=== PATIENT | male | born 2000 | race Caucasian/White ===

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

== ENCOUNTER 2019-04-07 23:04 | Emergency (ER) | payer SELFPAY ==
[~2019-04-07] VITALS: Ht 190.5 cm; Wt 72.6 kg
[2019-04-07 23:30] VITALS: BP 119/88
--- NOTE | 2019-04-08 01:43 | NUR ---
PT AMBULATED TO BED 02
[2019-04-08] MEDS ORDERED: ACETAMINOPHEN 325 MG TAB PO ONE (02:00)
[2019-04-08] MEDS ORDERED: IBUPROFEN 600 MG TAB PO ONE (02:00)
--- NOTE | 2019-04-08 02:14 | NUR ---
18 Y/O MALE PRESENTS TO ED, C/O PAIN BEHIND THE KNEE DUE TO A POSSIBLE CYST. PT STATES HE HAS BEEN HAVING PAIN SINCE BEING DISCHARGED FROM [facility] ED. PT DENIES TAKING ANY MEDICATIONS FOR PAIN. PT ABLE TO AMBULATE WITH SLOW STEADY GAIT BUT WITH PAIN. PT VSS. ERMD AWARE. WILL CONTINUE TO MONITOR.
[2019-04-08 03:58] LABS: BASOPHILS % (AUTO) 0.4 % (0.0-2.0); EOSINOPHILS # (AUTO) 0.3 K/uL (0-0.4); EOSINOPHILS % (AUTO) 2.2 % (0.0-4.0); HEMATOCRIT 40.5 % (36-52); HEMOGLOBIN 13.5 g/dL (12.0-18.0); LYMPHOCYTES # (AUTO) 3.5 K/uL (2.0-11.5); LYMPHOCYTES % (AUTO) 29.7 % (20.5-51.1); MEAN CORPUSCULAR HEMOGLOBIN 30 pg (27-31); MEAN CORPUSCULAR HGB CONC 33 g/dL (33-37); MEAN CORPUSCULAR VOLUME 90.4 fL (80-94); MONOCYTES # (AUTO) 0.8 K/uL (0.8-1.0); NEUTROPHILS # (AUTO) 7.2 K/uL (1.8-7.7); NEUTROPHILS % (AUTO) 60.7 % (42.2-75.2); PLATELET COUNT (AUTO) 308 K/uL (140-450); RED BLOOD CELL COUNT(AUTO) 4.48 MIL/uL (4.20-6.10); RED CELL DISTRIBUTION WIDTH 13.1 % (11.6-13.7); WHITE BLOOD COUNT (AUTO) 11.8 K/uL (4.5-11.0)
[2019-04-08 04:12] LABS: CARBON DIOXIDE 29.4 mmol/L (21-32); POTASSIUM 3.4 mmol/L (3.5-5.1)
--- NOTE | 2019-04-08 05:49 | NUR ---
PT WAS GIVEN CRUTCHES AND SHOWN HOW TO USE THEM. PT SHOWED GOOD USE OF CRUTCHES W NO ISSUES.
[2019-04-08 05:51] VITALS: BP 111/78
--- NOTE | 2019-04-08 05:51 | NUR ---
PT DISCHARGED WITH PAPERWORK. RX NAPROXEN. EDUCATED PT REGARDING MEDICATIONS AND S/E. EDCUATED PT REGARDING D/C DIAGNOSIS AND INSTRUCTIONS. PT VERBALIZED UNDERSTANDING OF TEACHING. TOLD PT TO FOLLOW UP WITH PCP AND WHEN TO RETURN TO ED. PT VSS. ALL QUESTIONS ANSWERED.
== END 2019-04-08 05:51 | disposition home or self-care (01) ==
LOC: MED 23:04
DX: M71.21 Synovial cyst of popliteal space [Baker], right knee (principal)
CPT/HCPCS: 36415; 76881; 80048; 85025; 85651; 86140; 99284; Q0092

== ENCOUNTER 2019-05-30 21:27 | Emergency (ER) | payer SELFPAY ==
[~2019-05-30] VITALS: Ht 190.5 cm; Wt 70.3 kg
[2019-05-30 21:32] VITALS: BP 111/63
--- NOTE | 2019-05-30 21:43 | NUR ---
PT AMBULATED TO RESTROOM TO PROVIDE URINE SAMPLE
[2019-05-30] MEDS ORDERED: AZITHROMYCIN 250 MG TAB PO ONE (21:50)
[2019-05-30] MEDS ORDERED: cefTRIAXone 250 MG in LIDOCAINE MPF 1% 0.9 ML IM ONE (21:50)
[2019-05-30] MEDS ORDERED: cefTRIAXone 1,000 MG in LIDOCAINE MPF 1% 2.1 ML IM ONE (21:55)
--- NOTE | 2019-05-30 21:56 | NUR ---
19 Y/O MALE PRESENTS TO ED, C/O BURNING SENSATION VOIDING ALONG WITH YELLOW DISCHARGE. PT STATES SYMPTOMS STARTED "A COUPLE DAYS AGO". PT HAS TENDERNESS AND PAIN ON LEFT SUPRAPUBIC REGION WITH SWELLING. PT DENIES ANY BLOODY DISCHARGE OR HEMATURIA. PT STATES BEING SEXUALLY ACTIVE. PT AT STABLE CONDITION. ERMD AWARE. WILL CONTINUE TO MONITOR.
[2019-05-30 22:12] VITALS: BP 119/55
--- NOTE | 2019-05-30 22:12 | NUR ---
PT DISCHARGED WITH PAPERWORK. RX CIPRO. EDUCATED PT REGARDING MEDICATION AND S/E. EDUCATED PT REGARDING D/C DIAGNOSIS AND INSTRUCTIONS. PT VERBALIZED UNDERSTANDING OF TEACHING. TOLD PT TO FOLLOW UP WITH PCP AND WHEN TO RETURN TO ED. PT AT STABLE CONDITION. ALL QUESTIONS ANSWERED.
[2019-05-30 23:18] LABS: APPEARANCE,URINE CLOUDY (CLEAR); BILIRUBIN,URINE NEGATIVE (NEGATIVE); BLOOD, URINE NEGATIVE (NEGATIVE); COLOR,URINE YELLOW (YELLOW); LEUKOCYTE ESTERASE ,URINE TRACE (NEGATIVE); NITRITE, URINE NEGATIVE (NEGATIVE); UGLUCOSE NEGATIVE (NEGATIVE)
[2019-05-31 01:25] LABS: RBC,URINE 0-5 /HPF (0-5); WBC,URINE TOO MANY TO COUNT /HPF (0-5)
[2019-06-02 06:27] LABS: CHLAMYDIA TRACHOMATIS AMP DNA Negative (Negative)
--- NOTE | 2019-06-03 19:00 | NUR ---
gonorrhoea culture positive; pt received azithromycin and rocephin in our ER and sent home with emily Rodriguez confirmed treatment appropriate i attempted to call phone on file but disconnected wireless
--- NOTE | 2019-06-08 18:46 | NUR ---
as per appropriate treatment given in ER during visit. attempted to reach pt to notify of positive results and f/u with pmd---[phone] wireless not in service
== END 2019-05-30 22:12 | disposition home or self-care (01) ==
LOC: MED 21:27
DX: N39.0 Urinary tract infection, site not specified (principal); F17.210 Nicotine dependence, cigarettes, uncomplicated; F12.90 Cannabis use, unspecified, uncomplicated; Z20.2 Contact with and (suspected) exposure to infections with a predominantly sexual mode of transmission
CPT/HCPCS: 36415; 81001; 87086; 87491; 96372; 99283; J0696; J2001

== ENCOUNTER 2019-09-16 21:10 | Emergency (ER) | payer MEDICAID ==
[~2019-09-16] VITALS: Ht 190.5 cm; Wt 66.7 kg
[2019-09-16 21:19] VITALS: BP 113/92
[2019-09-16 23:12] VITALS: BP 110/89
== END 2019-09-16 22:56 | disposition home or self-care (01) ==
LOC: MED 21:10
DX: S92.251D Displaced fracture of navicular [scaphoid] of right foot, subsequent encounter for fracture with routine healing (principal); W33.01XA Accidental discharge of shotgun, initial encounter
CPT/HCPCS: 73630; 90471; 90715; 99283

== ENCOUNTER 2019-10-12 21:35 | Emergency (ER) | payer MEDICAID ==
[~2019-10-12] VITALS: Ht 190.5 cm; Wt 72.6 kg
--- NOTE | 2019-10-12 21:45 | NUR ---
PT AMBULATED TO BED 2 WITH CRUTCHES, STEADY GAIT.
[2019-10-12 21:48] VITALS: BP 129/65
--- NOTE | 2019-10-12 21:50 | NUR ---
AT BEDSIDE EXAMINING PT
--- NOTE | 2019-10-12 21:50 | NUR ---
David hinojosa in [facility] - 10/12/19 at 2210 by [facility] AT BEDSIDE EXAMING PT
--- NOTE | 2019-10-12 21:51 | NUR ---
19 Y/O MALE C/O RIGHT ANKLE PAIN THAT RADIATES TO THE ENTIRE RIGHT FOOT AND HAS DECREASED RANGE OF MOTION. PT STATES HE INJURED HIS RIGHT FOOT RECENTLY AND WAS AWATING SURGERY FOR A BROKEN BONE IN RIGHT FOOT AND AT 7PM PT STEPPED WRONG AND RE-INJURED RIGHT ANKLE/FOOT AND PAIN 02/09. +CMS/WARMTH TO TOUCH/TENDER TO PALP/MILD EDEMA TO INNER RIGHT ANKLE. PT USING CRUTCHES FROM PREVIOUS FOOT INJURY. DENIES N/V/D; AAOX4 WITH AND USING CRUTCHES TO AMBULATE; PT DENIES ANY FEVER, CP, SOB, OR COUGH AT THIS TIME; VSS; PATIENT POSITIONED FOR COMFORT; HOB ELEVATED; BEDRAILS UP X1; BED DOWN AND LOCKED. MEDICAL HX: PT DENIES NKA
--- NOTE | 2019-10-12 21:52 | NUR ---
XR AT BEDSIDE.
--- NOTE | 2019-10-12 22:32 | NUR ---
ANKLE STIRRUP SPLINT PLACED ON PT R ANKLE, FASTENED IN PLACE. +CSM
[2019-10-12 22:40] VITALS: BP 129/65
--- NOTE | 2019-10-12 22:40 | NUR ---
Patient discharged with v/s stable. Written and verbal after care instructions given and explained. Patient verbalized understanding. Ambulatory with steady gait USING OLD CRUTCHES PT BROUGHT FROM HOME DESPITE ERMD STATING PT CAN WALK. All questions addressed prior to discharge. Advised to follow up with PMD.
== END 2019-10-12 22:40 | disposition home or self-care (01) ==
LOC: MED 21:35
DX: M25.571 Pain in right ankle and joints of right foot (principal); X58.XXXA Exposure to other specified factors, initial encounter; Y93.39 Activity, other involving climbing, rappelling and jumping off; Y92.89 Other specified places as the place of occurrence of the external cause; Y99.8 Other external cause status
CPT/HCPCS: 29515; 73610; 73630; 99284; Q0092

== ENCOUNTER 2020-12-03 23:20 | Emergency (ER) | payer MEDICAID, OTHER ==
[~2020-12-03] VITALS: Ht 188 cm; Wt 66.4 kg
[2020-12-03 23:27] VITALS: BP 114/76
--- NOTE | 2020-12-03 23:56 | NUR ---
Dr. Salas examining patient.
[2020-12-04] MEDS ORDERED: ONDANSETRON 4 MG/2 ML VIAL IVP ONE
--- NOTE | 2020-12-04 00:25 | NUR ---
pt ambulated to the bathroom for urine collection
[2020-12-04 00:43] LABS: BASOPHILS % (AUTO) 0.3 % (0.0-2.0); EOSINOPHILS # (AUTO) 0.2 K/uL (0-0.4); EOSINOPHILS % (AUTO) 1.2 % (0.0-4.0); HEMATOCRIT 43.8 % (36-52); HEMOGLOBIN 14.8 g/dL (12.0-18.0); LYMPHOCYTES # (AUTO) 3.1 K/uL (2.0-11.5); LYMPHOCYTES % (AUTO) 21.8 % (20.5-51.1); MEAN CORPUSCULAR HEMOGLOBIN 31 pg (27-31); MEAN CORPUSCULAR HGB CONC 34 g/dL (33-37); MEAN CORPUSCULAR VOLUME 90.2 fL (80-94); MONOCYTES # (AUTO) 0.7 K/uL (0.8-1.0); MONOCYTES % (AUTO) 4.6 % (1.7-9.3); NEUTROPHILS # (AUTO) 10.4 K/uL (1.8-7.7); NEUTROPHILS % (AUTO) 72.1 % (42.2-75.2); PLATELET COUNT (AUTO) 299 K/uL (140-450); RED BLOOD CELL COUNT(AUTO) 4.86 MIL/uL (4.20-6.10); RED CELL DISTRIBUTION WIDTH 12.9 % (11.6-13.7); WHITE BLOOD COUNT (AUTO) 14.4 K/uL (4.8-10.8)
[2020-12-04 00:48] LABS: ANION GAP 11.7 (8-16); CARBON DIOXIDE 29.3 mmol/L (21-32); CREATININE 0.9 mg/dL (0.6-1.3); TOTAL BILIRUBIN 0.4 mg/dL (0.0-1.0)
--- NOTE | 2020-12-04 00:50 | NUR ---
PATIENT BIB SELF FOR C/O EPIGASTRIC PAIN RADIATING TO "WHOLE STOMACH." PATIENT STATES PAIN STARTED X 3 DAYS AGO. HAS C/O NAUSEA AND DIARRHEA. PT REPORTS HEAVILY DRINKING ALCOHOL FOR THE LAST COUPLE OF DAYS. "STOMACH HAS BEEN MESSED UP FOR MONTHS NOW" FROM COVID. FEELS "SUPER UNCOMFORTABLE." EXPLAINS THAT THE PAIN FEELS LIKE PINCHING AND BURNING. AAOx4. VSS. PMH: N/A ALLERGIES: NKA
--- NOTE | 2020-12-04 01:15 | NUR ---
PT TAKEN TO CT VIA WC
--- NOTE | 2020-12-04 01:15 | NUR ---
PT TAKEN TO CT VIA W/C
--- NOTE | 2020-12-04 01:26 | NUR ---
PT RETURN FROM CT
[2020-12-04] MEDS ORDERED: ONDA-24 PO (02:10)
[2020-12-04] MEDS ORDERED: FAMO-90 PO (02:10)
[2020-12-04] MEDS ORDERED: ALUM355S59 PO (02:10)
[2020-12-04 02:22] VITALS: BP 113/64
--- NOTE | 2020-12-04 02:22 | NUR ---
Patient discharged with v/s stable. Written and verbal after care instructions given and explained. pain a 0/10. Patient alert, oriented and verbalized understanding of instructions. Ambulatory with steady gait. All questions addressed prior to discharge. ID band removed. Patient advised to follow up with PMD. Rx of Maalox advanced suspension, pepcid, and zofran ODT given. Patient educated on indication of medication including possible reaction and side effects. Opportunity to ask questions provided and answered.
== END 2020-12-04 02:22 | disposition home or self-care (01) ==
LOC: MED 23:20
DX: K29.70 Gastritis, unspecified, without bleeding (principal)
CPT/HCPCS: 36415; 74177; 80053; 83690; 85025; 96374; 99285; J2405; Q9967

== ENCOUNTER 2021-01-13 22:00 | Emergency (ER) | payer OTHER ==
[~2021-01-13] VITALS: Ht 188 cm; Wt 74.8 kg
[~2021-01-13 22:00] MED LIST: ALUM355S59 PO; FAMO-90 PO; ONDA-24 PO
[2021-01-13 22:16] VITALS: BP 112/77
--- NOTE | 2021-01-13 22:37 | NUR ---
PT TAKEN TO XRAY FROM [facility]
--- NOTE | 2021-01-13 22:41 | NUR ---
PT RETURN FROM [facility] TO [facility]
--- NOTE | 2021-01-14 01:35 | NUR ---
Patient discharged with v/s stable. Written and verbal after care instructions given and explained. Patient verbalized understanding. Ambulatory with steady gait. All questions addressed prior to discharge. Advised to follow up with PMD. NO NURSING INTERVENTIONS NEEDED.
== END 2021-01-14 01:35 | disposition home or self-care (01) ==
LOC: MED 22:00
DX: R07.89 Other chest pain (principal); Z79.899 Other long term (current) drug therapy
CPT/HCPCS: 71045; 99283